=== PATIENT | female | born 1950 | race Caucasian/White ===

== ENCOUNTER → 2018-08-30 | Outpatient (CLI) | payer BC ==
--- NOTE | 2018-08-31 09:32 | KCIC ---
BILATERAL SCREENING MAMMOGRAM History: Routine screening. Comparison: None available. Last mammogram 13 years ago. Interpreted as new baseline examination. Technique: Routine bilateral digital mammogram views were obtained. Findings: Breast Tissue Density C : The breasts are heterogeneously dense, which may obscure small masses. There are bilateral intact retroglandular silicone breast implants. There are dense capsular calcifications. Technologist notes implant displaced views not technically possible. Implants obscure portions of the breast parenchyma. There are no dominant suspicious masses, suspicious microcalcifications, or architectural distortion. There are 2 benign calcifications in the outer right breast. IMPRESSION: No mammographic evidence of malignancy. Recommend routine screening. BI-RADS category 2: Benign findings. The images were reviewed with computer aided detection. Patient information is entered into the reminder system with a target due date for the next screening mammogram. Mammography is the most sensitive method for finding small breast cancers, but it does not detect them all and is not a substitute for careful clinical examination. A negative mammogram does not negate a clinically suspicious finding and should not result in delay in biopsying a clinically suspicious abnormality. "Our facility is accredited by the [employer] Mammography Program." Electronically signed by: Keith King MD (08/31/2018 9:28 AM) [id number]
== END | disposition home or self-care (01) ==
LOC: KCIC MAMMO 10:24
PROVIDERS: ATTEND Family Medicine
DX: Z12.31 Encounter for screening mammogram for malignant neoplasm of breast (principal)
CPT/HCPCS: 77067